=== PATIENT | male | born 1975 | race Caucasian/White ===

== ENCOUNTER 2016-11-27 08:33 | Emergency (ER) | payer OTHER ==
[2016-11-27] MEDS ORDERED: ASPIRIN 81 MG CHEW TAB ONE (09:04)
== END 2016-11-27 10:57 | disposition home or self-care (01) ==
LOC: ER 08:33
DX: R07.2 Precordial pain (principal); F17.210 Nicotine dependence, cigarettes, uncomplicated
CPT/HCPCS: 36415; 71010; 80053; 82550; 83735; 84484; 85025; 85379; 85610; 85730; 93005